=== PATIENT | female | born 1990 | race Caucasian/White ===

== ENCOUNTER → 2019-04-12 | Outpatient (CLI) | payer MEDICAID | LOC: ZCOL.LAB 17:14 | DX: J02.9 Acute pharyngitis, unspecified (principal) ==

== ENCOUNTER 2019-04-24 15:30 | Emergency (ER) | payer SELFPAY ==
[~2019-04-24] VITALS: Ht 167.6 cm; Wt 99.2 kg
[2019-04-24 15:42] VITALS: BP 145/84
[2019-04-24 16:31] LABS: BASO # 0.1 (0.0-0.2); BASO % 0.5 % (0.0-2.0); EOS # 0.3 (0.0-0.7); EOS % 2.6 % (0-4.0); GRAN # 8.3 (1.4-6.5); GRAN % 75.4 % (42.2-75.2); HEMATOCRIT 38.6 % (37.0-47.0); LYMPH # 1.5 (1.2-3.4); LYMPH % 13.5 % (20.0-51.0); MEAN CELL VOLUME 88 fl (80.0-100.0); MEAN CORPUSCULAR HEMOGLOBIN 30 pg (27.0-31.0); MEAN CORPUSCULAR HGB CONC 34 g/dl (33.0-37.0); MONO # 0.8 (0.1-0.6); MONO % 7.4 % (1.7-9.3); PLATELET COUNT 210 K/mm3 (130-400); RED BLOOD COUNT 4.41 M/mm3 (4.10-5.30); REDCELL DISTRIBUTION WIDTH-CV 12.6 % (11.5-14.5)
[2019-04-24 16:40] LABS: CALCIUM 9.1 mg/dL (8.4-10.2); CREATININE, serum 0.74 (0.52-1.25); POTASSIUM 3.5 mmol/L (3.4-5.0)
[2019-04-24] MEDS ORDERED: ZITHROMAX 250M250 MG PO (17:40)
[2019-04-24] MEDS ORDERED: PHENERGAN W/CO120 M1 PO (17:40)
[2019-04-24 17:50] VITALS: PULSE 84; TEMP 98.8
== END 2019-04-24 18:00 | disposition home or self-care (01) ==
LOC: COL.ER 15:30
PROVIDERS: Emergency Medicine
DX: O99.511 Diseases of the respiratory system complicating pregnancy, first trimester (principal); J20.9 Acute bronchitis, unspecified; J06.9 Acute upper respiratory infection, unspecified; Z3A.09 9 weeks gestation of pregnancy
CPT/HCPCS: J2550; J7030

== ENCOUNTER → 2019-07-07 | Outpatient (CLI) | payer SELFPAY ==
[~2019-07-07] MED LIST: PHENERGAN W/CO120 M1 PO; ZITHROMAX 250M250 MG PO
[2019-07-07 15:23] LABS: BASO % 0.3 % (0.0-2.0); EOS % 0.5 % (0-4.0); GRAN # 6.3 (1.4-6.5); GRAN % 85.6 % (42.2-75.2); HEMOGLOBIN 11.9 g/dl (12.5-16.0); LYMPH # 0.6 (1.2-3.4); LYMPH % 8.1 % (20.0-51.0); MEAN CELL VOLUME 88 fl (80.0-100.0); MEAN CORPUSCULAR HEMOGLOBIN 29 pg (27.0-31.0); MEAN CORPUSCULAR HGB CONC 33 g/dl (33.0-37.0); MEAN PLATELET VOLUME 11.5 fl (7.4-10.4); MONO # 0.4 (0.1-0.6); MONO % 4.7 % (1.7-9.3); PLATELET COUNT 177 K/mm3 (130-400); REDCELL DISTRIBUTION WIDTH-CV 13.5 % (11.5-14.5)
[2019-07-07 15:25] LABS: HEMATOCRIT 36.2 % (37.0-47.0)
[2019-07-07 15:26] LABS: ALBUMIN 4.3 gm/dL (3.5-5.0); BILIRUBIN,TOTAL 0.8 mg/dL (0.0-1.0); CALCIUM 9.3 mg/dL (8.4-10.2); CREATININE, serum 0.61 (0.52-1.25); POTASSIUM 3.8 mmol/L (3.4-5.0); TOTAL PROTEIN 7.7 gm/dL (6.4-8.2)
== END ==
LOC: COL.LAB 14:53
PROVIDERS: Family Medicine
DX: R19.7 Diarrhea, unspecified (principal); R11.10 Vomiting, unspecified

== ENCOUNTER 2019-12-04 16:04 | Outpatient (CLI) | payer MEDICAID ==
[~2019-12-04] VITALS: Ht 165.1 cm; Wt 105.5 kg
--- NOTE | 2019-12-04 16:00 | NUR ---
Patient ambulatory to unit accompanied by spouse. Patient states she thinks her water broke about an hour ago, no having continueous leaking of fluid but states she has been losing her mucous plug as well. Patient denies any vaginal bleeding and states baby is active. FHR and contraction monitors placed and explained. SVE by this nurse 1-/3, no leaking of fluid noted on glove but some white/yellow mucous, amniotest negative. VS and assessment completed. Dr. Valdivia called and orders received.
[2019-12-04 16:05] VITALS: BP 126/67; PULSE 95; TEMP 98.7
[2019-12-04] MEDS ORDERED: PRENATAL PO (16:14)
--- NOTE | 2019-12-04 16:35 | NUR ---
Patient off monitors and up to bathroom to put clothes on. Patient discharge instructions reviewed with her and and she verbalizes understanding.
== END 2019-12-04 16:40 | disposition home or self-care (01) ==
LOC: LDR 16:04 → LDRO 16:04
DX: O42.92 Full-term premature rupture of membranes, unspecified as to length of time between rupture and onset of labor (principal); Z3A.39 39 weeks gestation of pregnancy; Z87.59 Personal history of other complications of pregnancy, childbirth and the puerperium
CPT/HCPCS: OP

== ENCOUNTER 2019-12-10 01:25 | Inpatient (IN) | payer MEDICAID ==
[2019-12-10] VITALS (49 sets, daily range): BP systolic 91–157; BP diastolic 52–88; PULSE 67–120; TEMP 97.5–99
[~2019-12-10] VITALS: Ht 165.1 cm; Wt 105.5 kg
--- NOTE | 2019-12-10 01:15 | NUR ---
G3L1. 40-0. Pt wheeled to LDR 5 with significant other. Clean gown on. EFM and TOCO explained and applied. Pt states she was dreaming that her water broke and she woke up and her bed was wet. Large amount of clear fluid noted. Pt denies vaginal bleeding and states she does not know if she is having contractions at this time. Reports good movement. Amniotest +. SVE /-2. Plan of care explained to pt and significant other. Pt states she would like to try a at this time. Educated pt on this and questions answered. 0131: called and updated on pts status. Pt updated on plan of care. 0220: IV started and labs obtained via IV site. LR bolus infusing without difficulties. Ancef administered per orders.
[~2019-12-10 01:25] MED LIST changes: +PRENATAL PO
[2019-12-10 03:38] LABS: BASO % 0.3 % (0.0-2.0); EOS # 0.1 (0.0-0.7); EOS % 0.8 % (0-4.0); GRAN # 5.4 (1.4-6.5); GRAN % 71.4 % (42.2-75.2); HEMOGLOBIN 10.6 g/dl (12.5-16.0); LYMPH # 1.5 (1.2-3.4); LYMPH % 19.1 % (20.0-51.0); MEAN CELL VOLUME 83 fl (80.0-100.0); MEAN CORPUSCULAR HEMOGLOBIN 27 pg (27.0-31.0); MEAN CORPUSCULAR HGB CONC 32 g/dl (33.0-37.0); MONO # 0.5 (0.1-0.6); PLATELET COUNT 153 K/mm3 (130-400); RED BLOOD COUNT 3.97 M/mm3 (4.10-5.30); REDCELL DISTRIBUTION WIDTH-CV 15.3 % (11.5-14.5)
--- NOTE | 2019-12-10 04:00 | NUR ---
[id number]: DIFFICULTY TRACING CONTRACTIONS DUE TO MATERNAL POSITION. TOCO ADJUSTED.
[2019-12-10] MEDS ORDERED: TUMS500 MG PO (04:47)
[2019-12-10] MEDS ORDERED: PEPCID 20MG TAB20 MG PO (04:48)
--- NOTE | 2019-12-10 07:16 | NUR ---
Pitocin started at 2mu/ml/hr per physician orders.
--- NOTE | 2019-12-10 07:57 | NUR ---
Dr. Ashley on unit. Per physician, hold pitocin at 6mu/ml/hr until further notice.
--- NOTE | 2019-12-10 08:23 | NUR ---
Dr. Ashley to bedside to discuss plan with pt. Pt agrees to plan, requests epidural at this time. Dk Morales CRNA notified.
--- NOTE | 2019-12-10 09:59 | NUR ---
0857 - Dk Morales CRNA to bedside at this time. Pt repositioned to sitting at side of bed. FHT difficult to trace in this position. Test dose administered at 0906. Pt repositioned for comfort RL. 918 - Pt BP 98/50, pt states she is feeling ok, just a little dizzy. IV fluid bolus given. 924 - Pt states she is feeling better, just sleepy. BP 117/63. 0933 - Dr. Ashley to bedside. SVE per provider /-2. Plan per physician to continue to hold pitocin at 6mu/ml/hr.
--- NOTE | 2019-12-10 11:18 | NUR ---
1043 - FHR deceleration started, moderate variability continues, pt repositioned. At 1045, FHT into 80s, still with moderate variability. Pt repositioned RL, pitocin stopped, Dk Morales at bedside to assist. FHT continue to remain 90s to 100s. SVE at 1048 4-5/90/-2. Doe Deleon RN to bedside at this time. Pt repositioned RL with pillow between knees at 1050, FHT starting to increase at this time. Moderate variability continues through decel, return to baseline at 1052. Dr. Ashley notified. Per physician, pitocin to remain off at this time.
--- NOTE | 2019-12-10 11:55 | NUR ---
Dr. Valdivia called to check on progress, get update regarding decel. Update given, she will update Dr. Ashley.
--- NOTE | 2019-12-10 12:30 | NUR ---
Dr. Ashley on unit. Report given that SVE at 1228 was 7/-1. Physician reviewed [facility], [facility] with current status. Orders to continue current plan of care.
--- NOTE | 2019-12-10 13:38 | NUR ---
1333 - FHT 90s to 100s. RN at bedside adjusting maternal pillows and position. FHT at this time tracing maternal heart rate. FHR returns to tracing at 1334.
--- NOTE | 2019-12-10 14:33 | NUR ---
1401 - SVE /-1. slight swelling noted to anterior cervix. 1413 - Dr. Ashley to pt bedside. SVE per provider /0. Physician request to place pt RL with PB. Pt repositioned at 1415, FHR dropped into 60s, recovering to 130s over 60 seconds with moderate variability. Pt repositioned supine in semi-fowlers at 1417. Pt WR at 1418, with PB at 1419. FHR deceleration into 90s over 1418 and 1419, recovering into 120s at 1420. FHR decrease into 100s at 1421, recovering to baseline at 1423. Dr. Ashley remains on unit, reviewing FHR.
--- NOTE | 2019-12-10 16:10 | NUR ---
1446 - Dr. Ashley to pt bedside. SVE per provider /+2. Plan to start pushing with next contractions. 900ml urine out with olivo removal. 1451 - Pushing started with contractions, physician and RN remain at bedside. Nursery RN notified. 1455 - Tamra Sweeney RN of nursery to bedside. 1459 - Female delivered spontaneously and placed on mother's abdomen. Care of infant transferred to Tamra Sweeney RN of nursery. Placenta spontaneously delivered at 1501. pitocin started per protocol. Profuse bleeding noted. Methergine IM given at 1504 per physician orders, cytotec given rectally by Dr. Ashley. bleeding much improved. Pericare provided, pt repositioned for comfort, ice pack placed.
[2019-12-11] VITALS (8 sets, daily range): BP systolic 103–124; BP diastolic 58–76; PULSE 63–99; TEMP 97–100.8
--- NOTE | 2019-12-11 10:00 | NUR ---
Rests in bed, alert. Holds baby. 1025 Request pain medication. Ibuprofen 800 mg, percocet 5/325 mg one given per request and as ordered.
--- NOTE | 2019-12-11 12:59 | NUR ---
Communications Professional prayed and offered congrats with patient while spouse was in room.
[2019-12-12] MEDS ORDERED: PERCOCET 325 MG1 TA2 PO (07:30)
[2019-12-12] MEDS ORDERED: MOTRIN 800800 MG/TAB PO (07:30)
[2019-12-12 07:45] VITALS: BP 117/73; PULSE 82; TEMP 97.6
--- NOTE | 2019-12-12 08:45 | NUR ---
Rests in bed, alert. Ibuprofen 800 mg given per request and as ordered.
--- NOTE | 2019-12-12 14:00 | NUR ---
Rests in bed, alert. Discharge instructions given. Verbalizes understanding.
== END 2019-12-12 14:00 | disposition home or self-care (01) | DRG 807 ==
LOC: LDRO 01:25 → LDR 02:05 → OB 17:42
PROVIDERS: Obstetrics & Gynecology; ADMIT Obstetrics & Gynecology
PROC: 10E0XZZ Delivery of Products of Conception, External Approach (ICD-10-PCS; principal; 2019-12-10)
PROC: 0KQM0ZZ Repair Perineum Muscle, Open Approach (ICD-10-PCS; 2019-12-10)
DX: O48.0 Post-term pregnancy (principal); Z37.0 Single live birth; O34.211 Maternal care for low transverse scar from previous cesarean delivery; O99.214 Obesity complicating childbirth; E66.9 Obesity, unspecified; O99.824 Streptococcus B carrier state complicating childbirth; D64.9 Anemia, unspecified; O99.02 Anemia complicating childbirth; O70.1 Second degree perineal laceration during delivery; Z3A.40 40 weeks gestation of pregnancy; O71.89 Other specified obstetric trauma
CPT/HCPCS: J0690; J2210; J2405; J2590; J7120

== ENCOUNTER → 2019-12-20 | Outpatient (CLI) | payer MEDICAID ==
[~2019-12-20] MED LIST changes: +MOTRIN 800800 MG/TAB PO; +PEPCID 20MG TAB20 MG PO; +PERCOCET 325 MG1 TA2 PO; +TUMS500 MG PO
--- NOTE | 2019-12-20 13:54 | NUR ---
Pt, Rica Brown, presents for outpatient consult with 10 day old baby girl, Felecia Vance, because Felecia will not latch to the breast. Felecia was born on [birth year] by and weighed 8#12.7oz (3990 gms). Her discharge weight was 8#1.0oz (3800 gms). Felecia did not latch well in the hospital and because of 8% wt loss was advised to pump and bottle feed until the baby could latch better. She was seen by Dr. Gutiérrez on 12/15/19 and was below 8# but pt cannot recall the exact weight. She had a weight check on 12/17/19 and was above 8# but again pt cannot recall the exact weight. Today Felecia weighs 8#6.7 oz (3818 gms). She is currently offered the breast q 3 hours and then bottle feed 3+oz EBM after. Pt is pumping and reports collecting 5-6oz per session. She does use formula x1 per day because she is not collecting at every feeding. Initially Felecia would not latch, pt was leaking copious amounts of milk. A nipple shield was placed and Felecia would take 3-4 sucks, then draw away, and then back on. LC places Rica into a reclined nursing position and with some help Felecia latches laying over the breast. The breast is also a little softer since pt has leaked with the effort to latch. After the first latch on the left breast Felecia had a weight gain of 2.0oz, she burped and then was placed back to the left breast as it was softer but still had milk in it. It takes several attempts to get her latched again and she did end up latching in the reclined position again. Total intake after feeding was 2.7oz (78 gms). POC: Pump briefly prior to latching to soften breast and draw nipple out better. Experiement with holds. Finish first side well before switching; understanding that Felecia may only nurse one side with the milk volume noted at this time. If she does not latch, pump and bottle feed. F/U: As scheduled with Dr Hill for well child check, with this LC as needed for latch assistance. Questions invited and answered.
== END ==
LOC: LAC 13:12
DX: Z39.1 Encounter for care and examination of lactating mother (principal); Z71.89 Other specified counseling

== ENCOUNTER 2020-03-22 08:41 | Emergency (ER) | payer MEDICAID ==
[~2020-03-22] VITALS: Ht 165.1 cm; Wt 100.0 kg
[2020-03-22 08:49] VITALS: BP 147/83; PULSE 91; TEMP 97.2
== END 2020-03-22 11:10 | disposition home or self-care (01) ==
LOC: COL.ER 08:41
DX: B34.9 Viral infection, unspecified (principal); F17.210 Nicotine dependence, cigarettes, uncomplicated; Z20.828 Contact with and (suspected) exposure to other viral communicable diseases; Z88.0 Allergy status to penicillin; Z88.2 Allergy status to sulfonamides

== ENCOUNTER 2020-07-11 16:13 | Emergency (ER) | payer MEDICAID ==
[~2020-07-11] VITALS: Ht 167.6 cm; Wt 109.1 kg
[~2020-07-11 16:13] MED LIST changes: +PREDNISONE20 MG PO; +ZITHROMAX Z PA250 MG PO
[2020-07-11 16:28] VITALS: TEMP 99
[2020-07-11 17:13] LABS: COLLECTION METHOD CLEAN CATCH
[2020-07-11 17:19] LABS: MUCOUS Present /lpf; PH 8 (5-8); URINE APPEARANCE Hazy; URINE BACTERIA Occasional /hpf; URINE BILIRUBIN Negative (NEGATIVE); URINE BLOOD Negative (NEGATIVE); URINE COLOR Yellow; URINE GLUCOSE Negative (NEGATIVE); URINE KETONE Negative (NEGATIVE); URINE LEUKOCYTE ESTERASE Negative (NEGATIVE); URINE NITRATE Negative (NEGATIVE); URINE PROTEIN(semi-quant) Negative (NEGATIVE); URINE RBC 0-2 /hpf; URINE UROBILINOGEN Negative (NEGATIVE)
[2020-07-11 19:19] LABS: BASO # 0.1 (0.0-0.2); BASO % 0.6 % (0.0-2.0); EOS # 0.2 (0.0-0.7); EOS % 2.5 % (0-4.0); GRAN # 5.6 (1.4-6.5); GRAN % 65.9 % (42.2-75.2); HEMATOCRIT 40.9 % (37.0-47.0); HEMOGLOBIN 13.4 g/dl (12.5-16.0); LYMPH # 1.9 (1.2-3.4); LYMPH % 22.6 % (20.0-51.0); MEAN CELL VOLUME 89 fl (80.0-100.0); MEAN CORPUSCULAR HEMOGLOBIN 29 pg (27.0-31.0); MEAN CORPUSCULAR HGB CONC 33 g/dl (33.0-37.0); MEAN PLATELET VOLUME 11.5 fl (7.4-10.4); MONO # 0.7 (0.1-0.6); MONO % 7.9 % (1.7-9.3); PLATELET COUNT 230 K/mm3 (130-400); RED BLOOD COUNT 4.61 M/mm3 (4.10-5.30); REDCELL DISTRIBUTION WIDTH-CV 13.5 % (11.5-14.5)
[2020-07-11 19:57] LABS: ALBUMIN 4.5 gm/dL (3.5-5.0); BILIRUBIN,TOTAL 0.5 mg/dL (0.0-1.0); C-REACTIVE PROTEIN 2.5 mg/dL (0.0-0.9); CALCIUM 9.5 mg/dL (8.4-10.2); CREATININE, serum 0.77 (0.52-1.25); POTASSIUM 4.7 mmol/L (3.4-5.0); TOTAL PROTEIN 7.5 gm/dL (6.4-8.2)
[2020-07-11] MEDS ORDERED: FLAGYL500 MG PO (20:14)
[2020-07-11] MEDS ORDERED: DOXYCYCLINE 10100 MG PO (20:14)
[2020-07-11 20:28] VITALS: BP 146/76; PULSE 84
== END 2020-07-11 20:28 | disposition home or self-care (01) ==
LOC: COL.ER 16:13
PROVIDERS: Nurse Practitioner
DX: R10.2 Pelvic and perineal pain (principal); F17.210 Nicotine dependence, cigarettes, uncomplicated; Z88.0 Allergy status to penicillin; Z88.2 Allergy status to sulfonamides; Z32.02 Encounter for pregnancy test, result negative
CPT/HCPCS: J0696; J1170; J1885; J2405; J7030

== ENCOUNTER 2020-08-23 10:22 | Emergency (ER) | payer MEDICAID ==
[~2020-08-23] VITALS: Ht 167.6 cm; Wt 118.2 kg
[~2020-08-23 10:22] MED LIST changes: +DOXYCYCLINE 10100 MG PO; +FLAGYL500 MG PO
[2020-08-23 10:26] VITALS: TEMP 99
[2020-08-23 10:59] LABS: BASO % 0.3 % (0.0-2.0); EOS # 0.2 (0.0-0.7); EOS % 2.4 % (0-4.0); GRAN # 6.7 (1.4-6.5); HEMOGLOBIN 12.3 g/dl (12.5-16.0); LYMPH # 1.3 (1.2-3.4); LYMPH % 15.3 % (20.0-51.0); MEAN CELL VOLUME 91 fl (80.0-100.0); MEAN CORPUSCULAR HEMOGLOBIN 29 pg (27.0-31.0); MEAN CORPUSCULAR HGB CONC 32 g/dl (33.0-37.0); MEAN PLATELET VOLUME 10.9 fl (7.4-10.4); MONO # 0.3 (0.1-0.6); MONO % 3.1 % (1.7-9.3); PLATELET COUNT 246 K/mm3 (130-400); REDCELL DISTRIBUTION WIDTH-CV 13.2 % (11.5-14.5)
[2020-08-23 11:10] LABS: ALBUMIN 3.8 gm/dL (3.5-5.0); BILIRUBIN,TOTAL 0.2 mg/dL (0.0-1.0); CALCIUM 8.5 mg/dL (8.4-10.2); CREATININE, serum 0.87 (0.52-1.25); POTASSIUM 4.2 mmol/L (3.4-5.0); TOTAL PROTEIN 7.1 gm/dL (6.4-8.2)
[2020-08-23 12:19] LABS: COLLECTION METHOD CLEAN CATCH
[2020-08-23 12:26] LABS: MUCOUS Present /lpf; PH 6 (5-8); SQUAMOUS EPITHELIAL 0-2 /hpf; URINE APPEARANCE Clear; URINE BACTERIA None Seen /hpf; URINE BILIRUBIN Negative (NEGATIVE); URINE BLOOD Negative (NEGATIVE); URINE COLOR Straw; URINE GLUCOSE Negative (NEGATIVE); URINE KETONE Negative (NEGATIVE); URINE LEUKOCYTE ESTERASE Negative (NEGATIVE); URINE NITRATE Negative (NEGATIVE); URINE PROTEIN(semi-quant) Negative (NEGATIVE); URINE RBC 0-2 /hpf; URINE UROBILINOGEN Negative (NEGATIVE)
[2020-08-23 14:00] VITALS: BP 111/90; PULSE 93
== END 2020-08-23 14:00 | disposition short-term general hospital (02) ==
LOC: COL.ER 10:22
PROVIDERS: Family Medicine
DX: R10.2 Pelvic and perineal pain (principal); F17.210 Nicotine dependence, cigarettes, uncomplicated; Z88.0 Allergy status to penicillin; Z88.2 Allergy status to sulfonamides
CPT/HCPCS: J1170; J2270; J2405; J7120; Q9967

== ENCOUNTER → 2020-12-13 | Outpatient (CLI) | payer MEDICAID | LOC: COL.RAD 09:45 | DX: K76.0 Fatty (change of) liver, not elsewhere classified (principal); R16.0 Hepatomegaly, not elsewhere classified; Z90.710 Acquired absence of both cervix and uterus; C56.2 Malignant neoplasm of left ovary; Z90.89 Acquired absence of other organs | CPT/HCPCS: Q9967 ==

== ENCOUNTER 2021-08-12 22:43 | Emergency (ER) | payer MEDICAID ==
[~2021-08-12] VITALS: Ht 165.1 cm; Wt 117.7 kg
[2021-08-12 23:25] VITALS: TEMP 98.1
[2021-08-13 00:50] LABS: BASO # 0.1 K/mm3 (0.0-0.2); BASO % 0.5 % (0.0-2.0); EOS # 0.2 K/mm3 (0.0-0.7); EOS % 2.2 % (0.0-4.0); GRAN # 6.3 K/mm3 (1.4-6.5); GRAN % 62.4 % (42.2-75.2); HEMATOCRIT 37.7 % (37.0-47.0); HEMOGLOBIN 12.6 g/dl (12.5-16.0); LYMPH # 2.9 K/mm3 (1.2-3.4); LYMPH % 29.3 % (20.0-51.0); MEAN CELL VOLUME 86 fl (80.0-100.0); MEAN CORPUSCULAR HEMOGLOBIN 29 pg (27-31); MEAN CORPUSCULAR HGB CONC 33 g/dl (33.0-37.0); MEAN PLATELET VOLUME 11.6 fl (7.4-10.4); MONO # 0.5 K/mm3 (0.1-0.6); MONO % 5.4 % (1.7-9.3); PLATELET COUNT 281 K/mm3 (130-400); RED BLOOD COUNT 4.41 M/mm3 (4.10-5.30); REDCELL DISTRIBUTION WIDTH-CV 12.9 % (11.5-14.5)
[2021-08-13 00:55] LABS: ALANINE AMINOTRANSFERASE 56 U/L (0-55); ALBUMIN 4.3 gm/dL (3.5-5.0); ALKALINE PHOSPHATASE 100 U/L (40-150); ANION GAP 12 mmol/L (7-16); AST,SGOT 37 U/L (5-34); BILIRUBIN,TOTAL 0.5 mg/dL (0.2-1.2); BLOOD UREA NITROGEN 11 mg/dL (7-19); CALCIUM 9.5 mg/dL (8.4-10.2); CARBON DIOXIDE 22 mmol/L (22-29); CHLORIDE 104 mmol/L (98-107); CREATININE, serum 0.92 mg/dL (0.57-1.11); GLUCOSE 99 mg/dL (70-99); POTASSIUM 3.7 mmol/L (3.5-4.5); SODIUM 138 mmol/L (136-145); TOTAL PROTEIN 8.2 gm/dL (6.2-8.1)
[2021-08-13 01:06] LABS: TROPONIN-I < 0.010 ng/mL (0.00-0.033)
[2021-08-13 02:20] VITALS: BP 100/74; PULSE 92
== END 2021-08-13 02:10 | disposition home or self-care (01) ==
LOC: COL.ER 22:43
PROVIDERS: Emergency Medicine
DX: R51.9 Headache, unspecified (principal); R74.01 Elevation of levels of liver transaminase levels; Z20.822 Contact with and (suspected) exposure to COVID-19
CPT/HCPCS: J1200; J2765; J7030

== ENCOUNTER 2021-09-13 19:13 | Emergency (ER) | payer MEDICAID ==
[~2021-09-13] VITALS: Ht 165.1 cm; Wt 114.1 kg
[2021-09-13 20:59] LABS: COLLECTION METHOD CLEAN CATCH
[2021-09-13 21:03] LABS: BASO # 0.1 K/mm3 (0.0-0.2); BASO % 0.5 % (0.0-2.0); EOS # 0.2 K/mm3 (0.0-0.7); EOS % 2.5 % (0.0-4.0); GRAN % 72.5 % (42.2-75.2); HEMATOCRIT 40.7 % (37.0-47.0); HEMOGLOBIN 13.8 g/dl (12.5-16.0); LYMPH # 1.6 K/mm3 (1.2-3.4); LYMPH % 16.4 % (20.0-51.0); MEAN CELL VOLUME 85 fl (80.0-100.0); MEAN CORPUSCULAR HEMOGLOBIN 29 pg (27-31); MEAN CORPUSCULAR HGB CONC 34 g/dl (33.0-37.0); MEAN PLATELET VOLUME 11.3 fl (7.4-10.4); MONO # 0.7 K/mm3 (0.1-0.6); MONO % 7.6 % (1.7-9.3); PLATELET COUNT 231 K/mm3 (130-400); RED BLOOD COUNT 4.79 M/mm3 (4.10-5.30); REDCELL DISTRIBUTION WIDTH-CV 13.2 % (11.5-14.5)
[2021-09-13 21:17] LABS: AMORPHOUS CRYSTAL Present (NOT PRESENT); PH 9 (5-8); URINE APPEARANCE Cloudy (CLEAR/HAZY); URINE BACTERIA None Seen /hpf (NONE SEEN); URINE BILIRUBIN Negative (NEGATIVE); URINE BLOOD Negative (NEGATIVE); URINE COLOR Yellow (YELLOW); URINE GLUCOSE Negative (NEGATIVE); URINE KETONE Negative (NEGATIVE); URINE LEUKOCYTE ESTERASE Negative (NEGATIVE); URINE NITRATE Negative (NEGATIVE); URINE PROTEIN(semi-quant) Negative (NEGATIVE); URINE RBC 0-2 /hpf (0-2); URINE UROBILINOGEN >=4.0 (NEGATIVE)
[2021-09-13 21:20] VITALS: TEMP 100.4
[2021-09-13 21:34] LABS: ALANINE AMINOTRANSFERASE 38 U/L (0-55); ALKALINE PHOSPHATASE 91 U/L (40-150); ANION GAP 15 mmol/L (7-16); AST,SGOT 27 U/L (5-34); BILIRUBIN,TOTAL 0.5 mg/dL (0.2-1.2); BLOOD UREA NITROGEN 9 mg/dL (7-19); C-REACTIVE PROTEIN 4.92 mg/dL (0.00-0.50); CALCIUM 8.9 mg/dL (8.4-10.2); CARBON DIOXIDE 19 mmol/L (22-29); CHLORIDE 105 mmol/L (98-107); CREATININE, serum 0.84 mg/dL (0.57-1.11); GLUCOSE 126 mg/dL (70-99); SODIUM 139 mmol/L (136-145); TOTAL PROTEIN 7.9 gm/dL (6.2-8.1)
[2021-09-13 21:41] LABS: TROPONIN-I < 0.010 ng/mL (0.00-0.033)
[2021-09-13] MEDS ORDERED: ZOFRAN ODT4 MG PO (23:39)
[2021-09-13] MEDS ORDERED: DOXYCYCLINE 10100 MG PO (23:39)
[2021-09-13] MEDS ORDERED: NORCO 325 MG-51 TAB PO (23:39)
[2021-09-14 00:26] VITALS: BP 100/68; PULSE 84
== END 2021-09-14 00:26 | disposition home or self-care (01) ==
LOC: COL.ER 19:13
PROVIDERS: Nurse Practitioner
DX: J02.9 Acute pharyngitis, unspecified (principal); Z20.822 Contact with and (suspected) exposure to COVID-19; Z88.0 Allergy status to penicillin; Z28.311 Partially vaccinated for COVID-19
CPT/HCPCS: J2405; J7030

== ENCOUNTER 2021-10-15 20:24 | Emergency (ER) | payer MEDICAID ==
[~2021-10-15] VITALS: Ht 165.1 cm; Wt 113.2 kg
[~2021-10-15 20:24] MED LIST changes: +NORCO 325 MG-51 TAB PO; +ZOFRAN ODT4 MG PO
[2021-10-15 20:34] VITALS: TEMP 98.8
[2021-10-15 21:17] LABS: BASO % 0.5 % (0.0-2.0); EOS # 0.2 K/mm3 (0.0-0.7); EOS % 1.8 % (0.0-4.0); GRAN # 5.7 K/mm3 (1.4-6.5); GRAN % 65.8 % (42.2-75.2); HEMATOCRIT 40.3 % (37.0-47.0); HEMOGLOBIN 13.4 g/dl (12.5-16.0); LYMPH # 2.2 K/mm3 (1.2-3.4); LYMPH % 24.7 % (20.0-51.0); MEAN CELL VOLUME 87 fl (80.0-100.0); MEAN CORPUSCULAR HEMOGLOBIN 29 pg (27-31); MEAN CORPUSCULAR HGB CONC 33 g/dl (33.0-37.0); MEAN PLATELET VOLUME 11.7 fl (7.4-10.4); MONO # 0.6 K/mm3 (0.1-0.6); MONO % 6.7 % (1.7-9.3); PLATELET COUNT 225 K/mm3 (130-400); RED BLOOD COUNT 4.62 M/mm3 (4.10-5.30); REDCELL DISTRIBUTION WIDTH-CV 13.1 % (11.5-14.5)
[2021-10-15 21:27] LABS: ALBUMIN 3.7 gm/dL (3.5-5.0); ANION GAP 15 mmol/L (7-16); BLOOD UREA NITROGEN 16 mg/dL (7-19); CALCIUM 9.4 mg/dL (8.4-10.2); CARBON DIOXIDE 21 mmol/L (22-29); CHLORIDE 106 mmol/L (98-107); CREATININE, serum 1.02 mg/dL (0.57-1.11); GLUCOSE 97 mg/dL (70-99); PHOSPHOROUS 4.6 mg/dL (2.3-4.7); POTASSIUM 3.9 mmol/L (3.5-4.5); SODIUM 142 mmol/L (136-145)
[2021-10-15 21:36] LABS: TROPONIN-I < 0.010 ng/mL (0.00-0.033)
[2021-10-15 22:55] VITALS: BP 135/81; PULSE 88
== END 2021-10-15 22:55 | disposition home or self-care (01) ==
LOC: COL.ER 20:24
PROVIDERS: Emergency Medicine
DX: R07.89 Other chest pain (principal); R91.8 Other nonspecific abnormal finding of lung field
CPT/HCPCS: J1885; J7120; Q9967

== ENCOUNTER 2022-01-12 03:29 | Emergency (ER) | payer MEDICAID ==
[~2022-01-12] VITALS: Ht 167.6 cm; Wt 109.1 kg
[2022-01-12 04:37] LABS: BASO % 0.3 % (0.0-2.0); EOS # 0.1 K/mm3 (0.0-0.7); EOS % 0.7 % (0.0-4.0); GRAN # 9.6 K/mm3 (1.4-6.5); GRAN % 78.2 % (42.2-75.2); HEMATOCRIT 41.3 % (37.0-47.0); HEMOGLOBIN 13.8 g/dl (12.5-16.0); LYMPH # 1.9 K/mm3 (1.2-3.4); LYMPH % 15.2 % (20.0-51.0); MEAN CELL VOLUME 86 fl (80.0-100.0); MEAN CORPUSCULAR HEMOGLOBIN 29 pg (27-31); MEAN CORPUSCULAR HGB CONC 33 g/dl (33.0-37.0); MEAN PLATELET VOLUME 11.9 fl (7.4-10.4); MONO # 0.6 K/mm3 (0.1-0.6); MONO % 5.1 % (1.7-9.3); PLATELET COUNT 187 K/mm3 (130-400); RED BLOOD COUNT 4.83 M/mm3 (4.10-5.30)
[2022-01-12 05:16] LABS: BILIRUBIN,TOTAL 0.5 mg/dL (0.2-1.2); CALCIUM 9.4 mg/dL (8.4-10.2); CREATININE, serum 1.01 mg/dL (0.57-1.11); POTASSIUM 3.8 mmol/L (3.5-4.5); TOTAL PROTEIN 7.6 gm/dL (6.2-8.1)
[2022-01-12] MEDS ORDERED: ZITHROMAX Z PA250 MG PO (06:10)
[2022-01-12 06:29] VITALS: BP 116/76; PULSE 88; TEMP 98.8
== END 2022-01-12 06:37 | disposition home or self-care (01) ==
LOC: COL.ER 03:29
PROVIDERS: Personal Emergency Response Attendant
DX: J20.9 Acute bronchitis, unspecified (principal); Z20.822 Contact with and (suspected) exposure to COVID-19; Z28.311 Partially vaccinated for COVID-19
CPT/HCPCS: J0696; J2270; J2405; J7030

== ENCOUNTER 2022-06-29 22:52 | Emergency (ER) | payer MEDICAID ==
[~2022-06-29] VITALS: Ht 165.1 cm; Wt 104.5 kg
[2022-06-29 22:56] VITALS: BP 118/76; TEMP 97.8
[2022-06-30] MEDS ORDERED: CLEOCIN HCL300 MG PO (00:19)
[2022-06-30 00:35] VITALS: PULSE 86
== END 2022-06-30 00:36 | disposition home or self-care (01) ==
LOC: COL.ER 22:52
DX: L73.9 Follicular disorder, unspecified (principal); C56.9 Malignant neoplasm of unspecified ovary; Z88.0 Allergy status to penicillin; Z88.2 Allergy status to sulfonamides; Z28.310 Unvaccinated for COVID-19

== ENCOUNTER → 2022-07-31 | Outpatient (CLI) | payer MEDICAID ==
[~2022-07-31] MED LIST changes: +CLEOCIN HCL300 MG PO
[2022-07-31 15:31] LABS: BASO % 0.5 % (0.0-2.0); EOS # 0.2 K/mm3 (0.0-0.7); EOS % 2.5 % (0.0-4.0); GRAN # 3.9 K/mm3 (1.4-6.5); GRAN % 61.7 % (42.2-75.2); HEMATOCRIT 39.9 % (37.0-47.0); HEMOGLOBIN 13.8 g/dl (12.5-16.0); LYMPH # 1.9 K/mm3 (1.2-3.4); LYMPH % 30.5 % (20.0-51.0); MEAN CELL VOLUME 85 fl (80.0-100.0); MEAN CORPUSCULAR HEMOGLOBIN 29 pg (27-31); MEAN CORPUSCULAR HGB CONC 35 g/dl (33.0-37.0); MEAN PLATELET VOLUME 11.4 fl (7.4-10.4); MONO # 0.3 K/mm3 (0.1-0.6); MONO % 4.6 % (1.7-9.3); PLATELET COUNT 185 K/mm3 (130-400); REDCELL DISTRIBUTION WIDTH-CV 12.9 % (11.5-14.5)
== END ==
LOC: COL.LAB 14:45
PROVIDERS: Physician Assistant
DX: R53.0 Neoplastic (malignant) related fatigue (principal); Z95.828 Presence of other vascular implants and grafts